=== PATIENT | male | born 1950 | race Caucasian/White ===

== ENCOUNTER 2018-10-15 08:03 | Emergency (ER) | payer MEDICARE, BC, SELFPAY ==
[2018-10-15 08:06] VITALS: BP 150/70; PULSE 80; RESP 16; TEMP 36.7; O2SAT 98
--- NOTE | 2018-10-15 08:12 | DI.RAD_ITS ---
SYMPTOM/DIAGNOSIS: S/P FALL DIRECTLY ON ANTERIOR KNEE RIGHT KNEE: 10/15 Four views were obtained. Note is made of mild degenerative changes of the joints of the knee most prominent involving medial tibiofemoral joint. There is no evidence of acute fracture or foreign body
--- NOTE | 2018-10-15 08:23 | ED.GENADUL_ITS ---
Discharge Plan Disposition Patient Disposition: HOME Condition: Stable Discharge Details Chief Complaint: Laceration Clinical Impression: Laceration of right knee Primary Care Provider: Alexys Trimble ED Provider: Brenda Valdez Home Meds and New Rx's Prescriptions: Continued lysine 1,000 MG tablet 1,000 mg PO DAILY RF: 0 simvastatin 20 MG tablet 20 mg PO DAILY RF: 0 Centrum Silver 1 EACH tablet 1 ea PO DAILY RF: 0 lisinopril 10 mg Tablet 10 mg PO DAILY RF: 0 Discharge Instructions Instructions: Care For Your Stitches (ED), Laceration (ED) Additional Instructions: Limit excessive flexion at your right knee including excessive sports activities for the next 1 to 2 months. Keep the wound clean and dry and cover with dressing if risk of contamination or opening. With any mild redness, swelling or pain, apply topical antibiotic ointment. Follow-up with your primary care doctor in 3 days for wound check and follow up with your primary care doctor or return to the emergency department in 10 to 14 days for suture removal. Return immediately to the emergency department if you develop any significant worsening or new concerning symptoms of fever, chills, significant redness, swelling, or pain. Discharge Data Discharge Date/Time-TO BE ENTERED AT DEPARTURE: 10/15/18 09:39 Discharge Physician: Brenda Valdez Medical Decision Making 68-year-old male who presents with right anterior knee laceration sustained in a mechanical fall with direct injury of right anterior knee to metal edge of step. Tetanus up-to-date 2016. There is a 7cm straight laceration right anterior knee extending deep through the dermis. No obvious bony or ligamentous injury. No deformity or foreign bodies noted. Neurovascular intact. We will send for right knee x-ray to rule out fracture versus foreign body and closed with sutures. Right knee x-ray negative for foreign body or fracture. Subcutaneous layer closed with #4 (4-0) Vicryl sutures and skin layer closed with #8 (4-0) nylon sutures. Wound was irrigated well before procedure and cover with topical antibiotic ointment and protective dressing. No history of diabetes or knee replacement and do not see an indication for prophylactic oral antibiotics. Patient was instructed in the importance of good wound care and excessive activity limiting flexion of the knee to prevent infection or rupture of sutures. Patient instructed to follow-up with his primary care doctor for wound check and to return here or follow-up with his primary care doctor in 10 to 14 days for suture removal. Medical Records Medical records reviewed: Yes I reviewed the patient's medical records. Imaging Data Radiologic Study: Radiologist's impression: RIGHT KNEE: 10/15 Four views were obtained. Note is made of mild degenerative changes of the joints of the knee most prominent involving medial tibiofemoral joint. There is no evidence of acute fracture or foreign body HPI General Mode of arrival: ambulatory . Date/Time Provider Initiated Documentation: 10/15/18 08:12 . Limitations to Documentation: no limitations . Information obtained by: patient . HPI Narrative: Pt is a 68yo M who presents to the ED w/ a c/o right anterior knee laceration sustained when patient was walking upstairs and tripped and hit his right anterior knee on the metal edge of a step. He states he tripped and denies any dizziness, chest pain or shortness of breath prior to fall. He denies any other injuries including head injury, other extremity injury, neck pain, back pain, chest pain or abdominal pain. He has not taken any medication for pain. He is unsure of his tetanus status but thinks he may be up-to-date. Related Data Home Medications Medication Instructions Recorded Confirmed Centrum Silver 1 ea PO DAILY 10/23/16 10/15/18 lysine 1,000 mg PO DAILY 10/23/16 10/15/18 simvastatin 20 mg PO DAILY tab-cap 10/23/16 10/15/18 lisinopril 10 mg PO DAILY 10/15/18 10/15/18 Allergies Allergy/AdvReac Type Severity Reaction Status Date / Time No Known Allergies Allergy Unverified 11/26/16 06:41 General Stated Complaint: Laceration HATTIE: 4 Review of Systems Review of Systems All systems reviewed & are unremarkable except as noted in HPI and below PFSH Medical History Hx of hyperlipidemia (Acute) HTN (hypertension) Obesity Surgical History Colonoscopy - IV Sedation (11/26/16) Open Carpal Tunnel release Repair of inguinal hernia Repair of umbilical hernia Social History Smoking/Tobacco Use Status: Former Tobacco Use Drug use: Never Substance use type: does not use Do you feel safe at home: Yes Do you feel safe in your relationship?: Yes Exam Const General: cooperative, healthy appearing and no acute distress HENMT Head: normal to inspection Mouth: oral mucosae normal Eyes General: appearance normal, both eyes and all related structures Neck Neck: normal visual inspection Resp Effort & Inspection: normal respiratory effort and able to speak in complete sentences Cardio Rate: regular rate Skin General skin exam: no rashes or lesions noted Neuro General: alert, awake and oriented x3 Motor: muscle tone normal throughout Extrem Knee images: 1. 7cm straight laceration R anterior knee extending to dermis. No obvious bony deformity or foreign body. Other: Full range of motion at right hip and right knee without ligamentous instability. Negative anterior posterior drawer test right knee. No pain or laxity with valgus or varus stress right knee. Full range of motion at right ankle and foot without evidence of bony injury. Psych Appearance: grossly normal Affect: normal affect Course Vital Signs Temperature 98.1 F 10/15/18 08:06 Pulse 80 10/15/18 08:06 Respiratory Rate 16 10/15/18 08:06 Pulse Oximetry 80 L 10/15/18 08:06 Temperature 98.1 F 10/15/18 08:06 Temperature Source Skin 10/15/18 08:06 Pulse 80 10/15/18 08:06 Respiratory Rate 16 10/15/18 08:06 Respiratory Effort Non-Labored 10/15/18 08:11 Blood Pressure Position Sitting 10/15/18 08:06 Pulse Oximetry 80 L 10/15/18 08:06 Oxygen Delivery Method Room Air 10/15/18 08:06 Oxygen Flow Rate 0 10/15/18 08:06 Pain Level 1 10/15/18 08:06 Procedures Laceration Laceration 1: Site: lower extremity (anterior knee) Side (If applicable): right Size (cm): 7 Description: linear Depth: simple, single layer (deep to dermis/sub Q tissue) Local Anesthetic: Lidocaine 1% and with Epi Amount of anesthesia used (mL): 12 Pre-repair: wound explored, irrigated extensively and deep structures intact Skin layer closed with: nylon Size (cm): 4-0 Number of sutures: 8 Technique: simple, interrupted Subcutaneous layer closed with: vicryl Size: 4-0 Number of sutures: 4 Technique: simple, interrupted
[2018-10-15 09:39] VITALS: BP 150/70; PULSE 80; RESP 16; TEMP 36.7; O2SAT 98
== END 2018-10-15 09:39 | disposition home or self-care (01) ==
LOC: ER 09:29
PROVIDERS: Emergency Provider Physician Assistant; PCP Internal Medicine
DX: S81.011A Laceration without foreign body, right knee, initial encounter (principal); W10.8XXA Fall (on) (from) other stairs and steps, initial encounter; I10 Essential (primary) hypertension
CPT/HCPCS: 12032; 99283; 73564; 99282

== ENCOUNTER 2018-10-29 10:36 | Emergency (ER) | payer BC, MEDICARE, SELFPAY ==
[2018-10-29 10:39] VITALS: BP 134/80; PULSE 84; RESP 16; TEMP 36.9; O2SAT 99
--- NOTE | 2018-10-29 10:57 | NUR.NOTE ---
sutures removed by this nurse area around knee is healing well suture line is well approximated Nursing Note:
--- NOTE | 2018-10-29 11:00 | ED.GENADUL_ITS ---
Discharge Plan Disposition Patient Disposition: HOME Discharge Details Chief Complaint: SutureRem Clinical Impression: Encounter for removal of sutures Primary Care Provider: Alexys Trimble ED Provider: Dwight Bedolla Home Meds and New Rx's Prescriptions: Continued lysine 1,000 MG tablet 1,000 mg PO DAILY RF: 0 simvastatin 20 MG tablet 20 mg PO DAILY RF: 0 Centrum Silver 1 EACH tablet 1 ea PO DAILY RF: 0 lisinopril 10 mg Tablet 10 mg PO DAILY RF: 0 Discharge Instructions Instructions: Stitches Removal (ED) Additional Instructions: Keep wound protected. Use dressing and Vijay wrap until scar fully developed. Please contact your primary care physician to arrange follow-up as needed. Return to the ER for any worsening or new concerning symptoms. Referrals: Alexys Trimble MD [Primary Care Provider] - Medical Decision Making 68-year-old male here 2 weeks status post suture placement right knee for suture removal. Wound assessed by nursing and #8 sutures removed prior to my assessment. Wound appears to be healing well with no signs of infection. Instructions were provided on how to protect wound and allow for continued healing. HPI General Mode of arrival: ambulatory . Date/Time Provider Initiated Documentation: 10/29/18 10:44 . Limitations to Documentation: no limitations . Information obtained by: patient . HPI Narrative: 68-year-old male here 2 weeks status post primary closure of laceration right knee. Patient here for suture removal. Patient notes wound is been healing well. Related Data Home Medications Medication Instructions Recorded Confirmed Centrum Silver 1 ea PO DAILY 10/23/16 10/15/18 lysine 1,000 mg PO DAILY 10/23/16 10/15/18 simvastatin 20 mg PO DAILY tab-cap 10/23/16 10/15/18 lisinopril 10 mg PO DAILY 10/15/18 10/15/18 Allergies Allergy/AdvReac Type Severity Reaction Status Date / Time No Known Allergies Allergy Unverified 11/26/16 06:41 General Stated Complaint: SutureRem HATTIE: 5 PFSH Social History Smoking/Tobacco Use Status: Former Tobacco Use Drug use: Never Substance use type: does not use Do you feel safe at home: Yes Do you feel safe in your relationship?: Yes Exam Skin Wounds: wounds noted (Right knee wound healed with no erythema, induration or fluctuance) Course Vital Signs Temperature 36.9 C 10/29/18 10:39 Pulse 84 10/29/18 10:39 Respiratory Rate 16 10/29/18 10:39 Blood Pressure 134/80 10/29/18 10:39 Pulse Oximetry 99 10/29/18 10:39 Temperature 36.9 C 10/29/18 10:39 Pulse 84 10/29/18 10:39 Respiratory Rate 16 10/29/18 10:39 Respiratory Effort Non-Labored 10/29/18 10:44 Blood Pressure 134/80 10/29/18 10:39 Blood Pressure Position Sitting 10/29/18 10:39 Pulse Oximetry 99 10/29/18 10:39 Oxygen Delivery Method Room Air 10/29/18 10:39 Oxygen Flow Rate 0 10/29/18 10:39
== END 2018-10-29 11:12 | disposition home or self-care (01) ==
PROVIDERS: Emergency Provider Student in an Organized Health Care Education/Training Program; PCP Internal Medicine
DX: S81.011D Laceration without foreign body, right knee, subsequent encounter (principal); X58.XXXD Exposure to other specified factors, subsequent encounter; Z48.02 Encounter for removal of sutures

== ENCOUNTER 2018-12-17 12:11 | Outpatient (REF) | payer MEDICARE, BC, SELFPAY ==
[2018-12-17 20:55] LABS: Anion Gap 11.2 mmol/L (3-11); BUN 17 mg/dL (7-18); CO2 24.8 mmol/L (21.0-32.0); CREATININE 0.93 mg/dL (0.70-1.30); Calcium 8.7 mg/dL (8.5-10.1); Chloride 106 mmol/L (98-107); Glucose 108 mg/dL (70-100); Potassium 4.4 mmol/L (3.5-5.1); Sodium 142 mmol/L (136-145)
[2018-12-17 21:41] LABS: Hemoglobin A1C 6.4 % (4.5-6.2)
== END 2018-12-17 12:31 ==
LOC: NCHCN 12:11
PROVIDERS: PCP Internal Medicine; Visit Provider Internal Medicine
DX: I10 Essential (primary) hypertension (principal); E66.9 Obesity, unspecified; Z13.1 Encounter for screening for diabetes mellitus
CPT/HCPCS: 80048; 83036

== ENCOUNTER 2019-12-29 18:33 | Outpatient (REF) | payer MEDICARE, BC, SELFPAY ==
[2019-12-29 21:16] LABS: Anion Gap 8.8 mmol/L (3-11); BUN 22 mg/dL (7-18); CO2 25.2 mmol/L (21.0-32.0); CREATININE 0.86 mg/dL (0.70-1.30); Calculated LDL 83 mg/dL (<100); Chloride 101 mmol/L (98-107); Cholesterol 152 mg/dL (<200); Glucose 100 mg/dL (74-106); HDL Cholesterol 35 mg/dL (40-60); Potassium 4.3 mmol/L (3.5-5.1); Sodium 135 mmol/L (136-145); Triglyceride 170 mg/dL (<150)
[2019-12-29 21:44] LABS: Hemoglobin A1C 5.9 % (<5.7)
== END 2019-12-29 18:53 ==
LOC: NCHCN 18:33
PROVIDERS: PCP Internal Medicine; Visit Provider Internal Medicine
DX: R73.03 Prediabetes (principal); E78.6 Lipoprotein deficiency; I10 Essential (primary) hypertension
CPT/HCPCS: 80048; 80061; 83036

== ENCOUNTER 2020-12-31 14:33 | Outpatient (REF) | payer MEDICARE, BC, SELFPAY ==
[2020-12-31 21:28] LABS: Anion Gap 7.6 mmol/L (3-11); BUN 18 mg/dL (7-18); CO2 28.4 mmol/L (21.0-32.0); CREATININE 0.9 mg/dL (0.70-1.30); Calcium 8.9 mg/dL (8.5-10.1); Chloride 105 mmol/L (98-107); Glucose 92 mg/dL (74-106); Potassium 4.6 mmol/L (3.5-5.1); Sodium 141 mmol/L (136-145)
[2020-12-31 21:56] LABS: Hemoglobin A1C 6.1 % (<5.7)
== END 2020-12-31 14:34 | disposition home or self-care (01) ==
LOC: NCHCN 14:33
PROVIDERS: PCP Internal Medicine; Visit Provider Internal Medicine
DX: E78.6 Lipoprotein deficiency (principal); I87.2 Venous insufficiency (chronic) (peripheral); R73.03 Prediabetes; I10 Essential (primary) hypertension
CPT/HCPCS: 80048; 83036

== ENCOUNTER 2021-10-19 10:39 | Outpatient (REF) | payer MEDICARE, BC, SELFPAY ==
[2021-10-19 11:37] LABS: CREATININE 0.9 mg/dL (0.70-1.30)
== END 2021-10-19 10:40 | disposition home or self-care (01) ==
LOC: LBN 10:39
PROVIDERS: PCP Internal Medicine
DX: U07.1 COVID-19 (principal)
CPT/HCPCS: 36415; 82565

== ENCOUNTER 2022-01-01 22:24 | Outpatient (REF) | payer MEDICARE, BC, SELFPAY ==
[2022-01-01 16:57] LABS: HCT 43.3 % (40.0-50.0); MCH 30.6 pg (27.0-33.0); MCHC 32.3 % (32.0-36.0); MCV 95 fL (80-95); MPV 10.5 fL (8.0-11.0); Platelet Count 288 10^3/uL (130-400); RBC 4.58 10^6/uL (4.36-5.78); RDW 13.2 % (11.8-14.1); RDW-SD 45.6 fL; WBC 7.64 10^3/uL (4.4-10.8)
[2022-01-01 17:06] LABS: ALT 26 U/L (16-63); AST 19 U/L (15-37); Albumin 3.7 g/dL (3.4-5.0); Alkaline Phosphatase 64 U/L (46-116); Anion Gap 4.5 mmol/L (3-11); BUN 20 mg/dL (7-18); Bilirubin, Total 0.5 mg/dL (0.2-1.0); CO2 30.5 mmol/L (21.0-32.0); Calcium 9.1 mg/dL (8.5-10.1); Chloride 104 mmol/L (98-107); Estimated GFR 79.97 (mL/min/1.73m2); Glucose 94 mg/dL (74-106); Potassium 4.4 mmol/L (3.5-5.1); Sodium 139 mmol/L (136-145); Total Protein 7.8 g/dL (6.4-8.2)
== END 2022-01-01 22:25 | disposition home or self-care (01) ==
LOC: NCHCN 22:24
PROVIDERS: PCP Internal Medicine; Visit Provider Family Medicine
DX: I10 Essential (primary) hypertension (principal)
CPT/HCPCS: 80053; 85027

== ENCOUNTER 2023-01-08 21:48 | Outpatient (REF) | payer MEDICARE, BC, SELFPAY ==
[2023-01-08 14:58] LABS: HCT 41.9 % (40.0-50.0); HGB 13.7 g/dL (13.5-17.5); MCH 30.6 pg (27.0-33.0); MCHC 32.7 % (32.0-36.0); MCV 94 fL (80-95); MPV 10.3 fL (8.0-11.0); Platelet Count 265 10^3/uL (130-400); RBC 4.48 10^6/uL (4.36-5.78); RDW 12.9 % (11.8-14.1); RDW-SD 44.4 fL; WBC 7.62 10^3/uL (4.4-10.8)
[2023-01-08 15:18] LABS: ALT 21 U/L (16-63); AST 14 U/L (15-37); Albumin 3.6 g/dL (3.4-5.0); Alkaline Phosphatase 62 U/L (46-116); Anion Gap 6.2 mmol/L (3-11); BUN 21 mg/dL (7-18); Bilirubin, Total 0.6 mg/dL (0.2-1.0); CO2 28.8 mmol/L (21.0-32.0); Calcium 9.2 mg/dL (8.5-10.1); Chloride 105 mmol/L (98-107); Estimated GFR 79.47 (mL/min/1.73m2); Glucose 104 mg/dL (74-106); Potassium 4.3 mmol/L (3.5-5.1); Sodium 140 mmol/L (136-145)
== END 2023-01-08 21:49 | disposition home or self-care (01) ==
LOC: NCHCN 21:48
PROVIDERS: PCP Internal Medicine; Visit Provider Family Medicine
DX: I10 Essential (primary) hypertension (principal); R73.03 Prediabetes; R60.0 Localized edema; E66.9 Obesity, unspecified
CPT/HCPCS: 80053; 85027

== ENCOUNTER 2024-01-26 14:51 | Outpatient (REF) | payer MEDICARE, BC, SELFPAY ==
[2024-01-26 15:23] LABS: Anion Gap 8.7 mmol/L (3-11); BUN 14 mg/dL (7-18); CO2 27.3 mmol/L (21.0-32.0); Calcium 9.1 mg/dL (8.5-10.1); Chloride 106 mmol/L (98-107); Estimated GFR 78.98 (mL/min/1.73m2); Glucose 91 mg/dL (74-106); LDL CHOLESTEROL 81 mg/dL (<100); Potassium 4.8 mmol/L (3.5-5.1); Sodium 142 mmol/L (136-145)
== END 2024-01-26 14:52 | disposition home or self-care (01) ==
LOC: NCHCN 14:51
PROVIDERS: PCP Internal Medicine; Visit Provider Family Medicine
DX: I10 Essential (primary) hypertension (principal); R73.03 Prediabetes
CPT/HCPCS: 80048; 83721; 83036

== ENCOUNTER 2025-01-06 02:07 | Outpatient (CLI) | payer MEDICARE, OTHER, SELFPAY ==
--- NOTE | 2025-01-06 | DI.US_ITS ---
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 COMPARISON: No exams were available for comparison FINDINGS: The right common femoral, femoral and popliteal veins demonstrate normal compressibility, augmentation, and color Doppler. The posterior tibial and peroneal veins are patent. The saphenofemoral junction is unremarkable. There is no evidence of a Kidd cyst. The soft tissues are unremarkable. IMPRESSION: No evidence of a right lower extremity DVT. DATA REPOSITORY:
== END 2025-01-06 02:27 ==
LOC: DI 02:07
PROVIDERS: PCP Family Medicine; Visit Provider Family Medicine
DX: I83.018 Varicose veins of right lower extremity with ulcer other part of lower leg (principal)
CPT/HCPCS: 93971

== ENCOUNTER 2025-02-02 13:16 | Outpatient (REF) | payer MEDICARE, OTHER, SELFPAY ==
[2025-02-02 15:29] LABS: ALT 25 U/L (16-63); AST 14 U/L (15-37); Albumin 3.6 g/dL (3.4-5.0); Alkaline Phosphatase 64 U/L (46-116); Anion Gap 9.7 mmol/L (3-11); BUN 23 mg/dL (7-18); Bilirubin, Total 0.7 mg/dL (0.2-1.0); CO2 26.3 mmol/L (21.0-32.0); Calcium 8.8 mg/dL (8.5-10.1); Chloride 103 mmol/L (98-107); Estimated GFR 78.49 (mL/min/1.73m2); Glucose 86 mg/dL (74-106); Potassium 4.3 mmol/L (3.5-5.1); Sodium 139 mmol/L (136-145); Total Protein 6.9 g/dL (6.4-8.2)
== END 2025-02-02 13:17 | disposition home or self-care (01) ==
LOC: NCHCN 13:16
PROVIDERS: PCP Family Medicine; Visit Provider Family Medicine
DX: I10 Essential (primary) hypertension (principal)
CPT/HCPCS: 80053